=== PATIENT | male | born 1950 | race Caucasian/White ===

== ENCOUNTER 2022-02-18 16:43 | Emergency (ER) | payer OTHER ==
[2022-02-18 20:46] LABS: BASOPHIL 0.4 % (0-2); HCT 44.3 % (42.0-52.0); HGB 15.4 g/dl (13.2-18.0); LYMPHOCYTE 19.1 % (15-48); MCH 31.8 pg (25.0-31.0); MCHC 34.8 g/dL (32.0-36.0); MCV 91.5 fL (78.0-100.0); MONOCYTE 7.5 % (0-12); MPV 10.9 fL (6.0-9.5); NEUTROPHIL 69.6 % (41-80); NRBC 0; PLT 139 K/uL (150-400); RBC 4.84 M/uL (4.70-6.00); RDW 12.9 % (11.5-14.0); WBC 10.2 K/uL (4.0-10.5)
[2022-02-18 21:07] LABS: ALBUMIN 4.3 g/dL (3.4-5.0); BUN/CREAT RATIO (CALC) 12.7 RATIO; CREATININE 1.02 mg/dL (0.67-1.17); GLOBULIN (CALCULATION) 2.7 g/dL; POTASSIUM 3.5 mmol/L (3.5-5.1)
== END 2022-02-18 22:00 | disposition home or self-care (01) ==
LOC: FER 16:43
PROVIDERS: Internal Medicine
DX: R10.30 Lower abdominal pain, unspecified (principal); R19.7 Diarrhea, unspecified; Z88.8 Allergy status to other drugs, medicaments and biological substances
CPT/HCPCS: 36415; 80053; 83690; 84145; 85025

== ENCOUNTER → 2022-03-20 | Day surgery (SDC) | payer OTHER ==
[~2022-03-20] VITALS: Ht 182.9 cm; Wt 108.4 kg
[~2022-03-20] MED LIST: ABILIFY2 MG PO; CRESTOR10 MG PO; FLONASE ALLER15.8 ML; HYDROCODON-ACE1 EAC2 PO; ONDANSETRON ODT8 MG PO; PROTONIX 40MG T40 MG PO; WELLBUTRIN SR200 MG PO; ZOLOFT100 M1 PO
== END | disposition home or self-care (01) ==
LOC: FAS 07:30
DX: K31.9 Disease of stomach and duodenum, unspecified (principal); K29.60 Other gastritis without bleeding; K31.7 Polyp of stomach and duodenum; K22.89 Other specified disease of esophagus; R19.7 Diarrhea, unspecified; R79.89 Other specified abnormal findings of blood chemistry; R63.4 Abnormal weight loss; R10.32 Left lower quadrant pain; R10.31 Right lower quadrant pain; R11.10 Vomiting, unspecified; K59.00 Constipation, unspecified; F17.220 Nicotine dependence, chewing tobacco, uncomplicated; M19.90 Unspecified osteoarthritis, unspecified site; F10.21 Alcohol dependence, in remission
CPT/HCPCS: 93005; J2704; J7120

== ENCOUNTER → 2022-04-03 | Day surgery (SDC) | payer OTHER ==
[~2022-04-03] VITALS: Ht 182.9 cm; Wt 106.6 kg
== END | disposition home or self-care (01) ==
LOC: FAS 08:15
DX: R19.7 Diarrhea, unspecified (principal); R79.89 Other specified abnormal findings of blood chemistry; R63.4 Abnormal weight loss; F31.9 Bipolar disorder, unspecified; E78.00 Pure hypercholesterolemia, unspecified; F17.290 Nicotine dependence, other tobacco product, uncomplicated; Z86.010 Personal history of colon polyps; Z80.0 Family history of malignant neoplasm of digestive organs; Z68.34 Body mass index [BMI] 34.0-34.9, adult; Z79.899 Other long term (current) drug therapy
CPT/HCPCS: J2250; J2704; J7120